=== PATIENT | female | born 1960 | race Caucasian/White ===

== ENCOUNTER 2019-02-12 11:39 | Emergency (ER) | payer OTHER ==
[~2019-02-12] VITALS: Ht 160 cm; Wt 58.1 kg
[~2019-02-12 11:39] MED LIST: BENAZEPRIL; CALCIUM; FERROUS SULFATE; METOPROLOL; PLAVIX; PRAVASTATIN
[2019-02-12 13:27] VITALS: Ht 160 cm; Wt 58.1 kg
[2019-02-12 15:13] LABS: BASOPHIL % 1.2 % (0-2); PLATELET COUNT 143 x10^3mcL (130-400); RED CELL DISTRIBUTION WIDTH 15.9 % (11.5-14.5)
[2019-02-12 15:24] LABS: ALBUMIN 3.3 g/dL (3.4-5.0); BILIRUBIN TOTAL 0.8 mg/dL (0.20-1.00); CALCIUM 9.4 mg/dL (8.5-10.1); CARBON DIOXIDE 32.2 mmol/L (21-32); TOTAL PROTEIN, SERUM 6.5 g/dL (6.4-8.2)
[2019-02-12 17:42] VITALS: BP 149/64
== END 2019-02-12 17:42 | disposition home or self-care (01) ==
LOC: ED 11:39
PROVIDERS: Emergency Medicine
DX: E11.22 Type 2 diabetes mellitus with diabetic chronic kidney disease (principal); I12.0 Hypertensive chronic kidney disease with stage 5 chronic kidney disease or end stage renal disease; N18.6 End stage renal disease; I50.9 Heart failure, unspecified; A08.4 Viral intestinal infection, unspecified; Z99.2 Dependence on renal dialysis; Z48.21 Encounter for aftercare following heart transplant
CPT/HCPCS: 36415; 87804